=== PATIENT | male | born 1985 | race Caucasian/White ===

== ENCOUNTER 2021-01-15 15:15 | Emergency (ER) | payer MEDICARE ==
[2021-01-15] MEDS ORDERED: BACTRIM DS TAB1 EACH PO (20:21)
== END 2021-01-15 20:02 | disposition home or self-care (01) ==
LOC: FER 15:15
DX: I82.611 Acute embolism and thrombosis of superficial veins of right upper extremity (principal); M79.89 Other specified soft tissue disorders; F17.210 Nicotine dependence, cigarettes, uncomplicated; I10 Essential (primary) hypertension
CPT/HCPCS: 73090; 93971

== ENCOUNTER 2021-12-24 16:33 | Emergency (ER) | payer OTHER, MEDICARE ==
[~2021-12-24 16:33] MED LIST: BACTRIM DS TAB1 EACH PO
[2021-12-24] MEDS ORDERED: CYCLOBENZAPRINE10 MG PO (18:07)
[2021-12-24] MEDS ORDERED: MEDROL 4MG DOSEP4 MG PO (18:07)
== END 2021-12-24 18:25 | disposition home or self-care (01) ==
LOC: FER 16:33
DX: S13.9XXA Sprain of joints and ligaments of unspecified parts of neck, initial encounter (principal); S73.102A Unspecified sprain of left hip, initial encounter; I10 Essential (primary) hypertension; V49.40XA Driver injured in collision with unspecified motor vehicles in traffic accident, initial encounter; Z28.310 Unvaccinated for COVID-19
CPT/HCPCS: 72125; 72128; 73502; 96372; J1100; J1885